=== PATIENT | female | born 1950 | race Two or more races ===

== ENCOUNTER 2024-07-31 08:43 | Outpatient (CLI) | payer OTHER ==
[~2024-07-31 08:43] MED LIST: AMBIEN10 MG; LISINOPRIL20 MG; NORVASC5 MG
== END 2024-07-31 09:00 | disposition home or self-care (01) ==
LOC: TOM 08:43
PROVIDERS: ATTEND Internal Medicine
DX: Z12.11 Encounter for screening for malignant neoplasm of colon (principal)

== ENCOUNTER 2024-09-22 10:58 | Inpatient (IN) | payer OTHER ==
[~2024-09-22] VITALS: Ht 243.8 cm; Wt 71.7 kg
[2024-09-22] MEDS ORDERED: AVAPRO150 MG PO (11:46)
[2024-09-22] MEDS ORDERED: CARDIZEM CD180 M1 PO (11:47)
[2024-09-22] MEDS ORDERED: LEVALBUTER0.63 MG/3 (11:48)
[2024-09-22] MEDS ORDERED: XOPENEX HFA15 GM IH (11:48)
[2024-09-22] MEDS ORDERED: BREO ELLIPTA 21 EACH IH (11:50)
[2024-09-22] MEDS ORDERED: OMEGA 3 1,0001 EACH PO (11:50)
[2024-09-22] MEDS ORDERED: BERBERINE500 MG (11:51)
[2024-09-22] MEDS ORDERED: MELATONIN10 M2 (11:51)
[2024-09-22] MEDS ORDERED: DAILY VITE1 EAC1 PO (11:52)
[2024-09-29] MEDS ORDERED: METRONIDAZOLE/SODIUM CHLORIDE 500 MG/100 ML PIGGYBACK IV ONE (14:52)
[2024-09-29] MEDS ORDERED: CEFTRIAXONE SODIUM 2,000 MG VIAL ONE (14:52)
[2024-09-29] MEDS ORDERED: RINGERS SOLUTION,LACTATED 1,000 ML IV SCH (16:30)
[2024-09-29] MEDS ORDERED: OxyCODONE HCL 5 MG TABLET (ROXICODONE) PO PRN (16:30)
[2024-09-29] MEDS ORDERED: DEXTROSE 50 % IN WATER 0.5 G/ML VIAL IV PRN (16:30)
[2024-09-29] MEDS ORDERED: MORPHINE SULFATE 4 MG/ML CARTRIDGE IV PRN (16:30)
[2024-09-29] MEDS ORDERED: ONDANSETRON HCL 2 MG/ML VIAL IV PRN (16:30)
[2024-09-29] MEDS ORDERED: POLYETHYLENE GLYCOL 3350 17 GM BLIST.PACK PO SCH (17:00)
[2024-09-29] MEDS ORDERED: GABAPENTIN 300 MG CAPSULE PO SCH (17:00)
[2024-09-29] MEDS ORDERED: MORPHINE SULFATE 4 MG/ML VIAL IV ONE ×2 (17:20→17:50)
[2024-09-29] MEDS ORDERED: ENALAPRILAT DIHYDRATE 1.25 MG/ML VIAL IV PRN (17:30)
[2024-09-29] MEDS ORDERED: LEVALBUTEROL HCL 0.63 MG/3 ML SOLUTION IH SCH (18:00)
[2024-09-29] MEDS ORDERED: LEVALBUTEROL HCL 0.63 MG/3 ML SOLUTION IH ONE (19:04)
[2024-09-29] MEDS ORDERED: ACETAMINOPHEN 500 MG GEL..CAP PO SCH (20:00)
[2024-09-29] MEDS ORDERED: FAMOTIDINE/PF 20 MG/2 ML VIAL ONE (20:45)
[2024-09-29] MEDS ORDERED: FAMOTIDINE/PF 20 MG/2 ML VIAL IV PUSH SCH (21:00)
[2024-09-29] MEDS ORDERED: DILTIAZEM HCL 180 MG CAP.SR.24H PO SCH (21:00)
[2024-09-29 21:21] VITALS: BP 164/89; O2SAT 98
[2024-09-29 21:21] LABS: HEMATOCRIT 39.3 % (36.0-45.00); HEMOGLOBIN 12.7 g/dL (12.0-15.00); MEAN CELL VOLUME 86.4 fL (80.00-100.00); MEAN CORPUSCULAR HGB CONC 32.4 g/dl (32.0-36.0); PLATELET COUNT 228 K/uL (150-450); RED BLOOD COUNT 4.55 M/uL (4.00-6.00); RED CELL DISTRIBUTION WIDTH 13.8 % (11.5-14.5)
[2024-09-29 21:26] LABS: ALBUMIN 3.4 gm/dL (3.4-5.0); CALCIUM 9.2 mg/dL (8.5-10.1); CREATININE SERUM 0.8 mg/dL (0.55-1.02); GFR 70.31; MAGNESIUM 1.7 mg/dL (1.8-2.4); PHOSPHOROUS 3.5 mg/dL (2.5-4.9); POTASSIUM 4.13 mEq/L (3.5-5.1)
[2024-09-30 06:23] LABS: HEMATOCRIT 38.9 % (36.0-45.00); HEMOGLOBIN 12.8 g/dL (12.0-15.00); MEAN CELL VOLUME 85.5 fL (80.00-100.00); MEAN CORPUSCULAR HEMOGLOBIN 28.1 pg (27.00-32.0); MEAN CORPUSCULAR HGB CONC 32.9 g/dl (32.0-36.0); PLATELET COUNT 221 K/uL (150-450); RED BLOOD COUNT 4.55 M/uL (4.00-6.00); RED CELL DISTRIBUTION WIDTH 13.5 % (11.5-14.5)
[2024-09-30 06:54] LABS: ALBUMIN 3.2 gm/dL (3.4-5.0); CREATININE SERUM 0.77 mg/dL (0.55-1.02); GFR 73.48; MAGNESIUM 1.9 mg/dL (1.8-2.4); PHOSPHOROUS 3.8 mg/dL (2.5-4.9); POTASSIUM 4.54 mEq/L (3.5-5.1)
[2024-09-30 08:00] VITALS: BP 110/69; O2SAT 96
[2024-09-30] MEDS ORDERED: IRBESARTAN 150 MG TABLET PO SCH (09:00)
[2024-09-30 16:00] VITALS: BP 124/64; O2SAT 95
[2024-09-30] MEDS ORDERED: ENOXAPARIN SODIUM 40 MG/0.4 ML SYRINGE SUBCUTANEO SCH (17:00)
[2024-10-01] VITALS: BP 114/67; O2SAT 95
[2024-10-01 06:58] LABS: HEMOGLOBIN 11.5 g/dL (12.0-15.00); MEAN CELL VOLUME 85.9 fL (80.00-100.00); MEAN CORPUSCULAR HEMOGLOBIN 28.2 pg (27.00-32.0); MEAN CORPUSCULAR HGB CONC 32.8 g/dl (32.0-36.0); PLATELET COUNT 200 K/uL (150-450); RED BLOOD COUNT 4.07 M/uL (4.00-6.00); RED CELL DISTRIBUTION WIDTH 13.6 % (11.5-14.5)
[2024-10-01 07:11] LABS: CALCIUM 8.8 mg/dL (8.5-10.1); CREATININE SERUM 0.78 mg/dL (0.55-1.02); GFR 72.39; MAGNESIUM 2.1 mg/dL (1.8-2.4); PHOSPHOROUS 3.1 mg/dL (2.5-4.9); POTASSIUM 3.99 mEq/L (3.5-5.1)
[2024-10-01 08:31] VITALS: BP 105/70; O2SAT 94
[2024-10-01] MEDS ORDERED: ENOXAPARIN SODIUM 40 MG/0.4 ML SYRINGE SUBCUTANEO SCH (09:00)
[2024-10-01] MEDS ORDERED: LEVALBUTEROL HCL 0.63 MG/3 ML SOLUTION IH SCH (09:00)
[2024-10-01 19:53] VITALS: BP 112/75; O2SAT 94
[2024-10-02 00:50] VITALS: BP 113/76; O2SAT 95
[2024-10-02 08:00] VITALS: BP 116/70; O2SAT 95
[2024-10-02] MEDS ORDERED: NEURONTIN300 MG PO (11:28)
[2024-10-02] MEDS ORDERED: INTESTINEX680 M1 PO (11:28)
[2024-10-02] MEDS ORDERED: TYLENOL EXTRA500 MG PO (11:28)
== END 2024-10-02 13:38 | disposition home or self-care (01) | DRG 330 ==
LOC: O/R 09-29 09:00 → SURH 09-29 09:45
PROVIDERS: Internal Medicine Geriatric Medicine; ADMIT Surgery; ATTEND Surgery
PROC: 0DBP4ZZ Excision of Rectum, Percutaneous Endoscopic Approach (ICD-10-PCS; 2024-09-29)
PROC: 07BB4ZZ Excision of Mesenteric Lymphatic, Percutaneous Endoscopic Approach (ICD-10-PCS; 2024-09-29)
PROC: 0DJD8ZZ Inspection of Lower Intestinal Tract, Via Natural or Artificial Opening Endoscopic (ICD-10-PCS; 2024-09-29)
PROC: 0DTN4ZZ Resection of Sigmoid Colon, Percutaneous Endoscopic Approach (ICD-10-PCS; principal; 2024-09-29 09:45)
DX: K57.32 Diverticulitis of large intestine without perforation or abscess without bleeding (principal); K55.1 Chronic vascular disorders of intestine; R59.0 Localized enlarged lymph nodes; I10 Essential (primary) hypertension